=== PATIENT | female | born 1950 | race Caucasian/White ===

== ENCOUNTER 2018-05-25 15:48 | Emergency (ER) | payer MEDICARE, MEDICAID ==
[~2018-05-25] VITALS: Ht 162.6 cm; Wt 63.6 kg
[2018-05-25 16:11] VITALS: BP 174/95
[2018-05-25] MEDS ORDERED: NAPR-56 PO (16:32)
== END 2018-05-25 16:46 | disposition home or self-care (01) ==
LOC: ER 15:49
DX: G57.01 Lesion of sciatic nerve, right lower limb (principal); M25.551 Pain in right hip; Z79.899 Other long term (current) drug therapy
CPT/HCPCS: 99282